=== PATIENT | female | born 2000 | race Two or more races ===

== ENCOUNTER 2025-03-30 03:22 | Emergency (ER) | payer SELFPAY ==
[2025-03-30 03:32] VITALS: BP 116/78; PULSE 72; RESP 19; TEMP 36.8; O2SAT 98
--- NOTE | 2025-03-30 03:43 | XR_ITS ---
Examination: Foot, right, 3 views Technique: AP, oblique, lateral views foot, 3 views Date and time of exam: March 30, 2025 0347 hours INDICATIONS: Patient fell today with injury to the foot, fifth digit pain. FINDINGS: Soft tissue swelling at the fifth metatarsophalangeal joint Faint radiolucency through the proximal aspect proximal phalanx fifth digit IMPRESSION: Recommend follow-up coned views fifth digit to exclude nondisplaced fracture proximal phalanx
--- NOTE | 2025-03-30 03:43 | PD.EDANKLE ---
Lower Extremity Injury RME/HPI General Chief Complaint: Ankle/Foot Injury Stated Complaint: TRIP AND FALL 5TH DIDGIT PAIN R FOOT Time Seen by Provider: 03/30/25 03:43 Arrival date/time: 03/30/25 03:22 24F with no significant PMH presents to ED with R foot pain after twist/fall 2 days ago. Limitations: no limitations Related Data Previous Rx's ?Medication ?Instructions ?Recorded ibuprofen 600 mg tablet 600 mg PO Q8H PRN pain #30 tabs 02/14/22 pantoprazole 40 mg tablet,delayed 40 mg PO QDAY #30 tabs 06/06/22 release (Protonix) ibuprofen 400 mg tablet 400 mg PO Q8H PRN fever or pain 04/02/23 #30 tabs Allergies Allergy/AdvReac Type Severity Reaction Status Date / Time No Known Allergies Allergy Verified 03/30/25 03:27 Review of Systems Review of Systems Systems Reviewed: All systems reviewed, normal except as documented Constitutional Constitutional: Reports system reviewed and no additional complaints, except as documented, Denies fever(s) and Denies headache(s) ENT Ears, Nose, Mouth, and Throat: Denies disequilibrium and Denies headache(s) Cardiovascular Cardiovascular: Reports system reviewed and no additional complaints, except as documented, Denies chest pain and Denies dyspnea Respiratory Respiratory: Reports system reviewed and no additional complaints, except as documented, Denies cough and Denies dyspnea Gastrointestinal Gastrointestinal: Reports system reviewed and no additional complaints, except as documented, Denies abdominal pain, Denies nausea and Denies vomiting Musculoskeletal Musculoskeletal: Reports as per HPI and Reports arthralgias Neurologic Neurologic: Reports system reviewed and no additional complaints, except as documented, Denies confusion, Denies disequilibrium and Denies headache(s) Psychiatric Psychiatric: Denies confusion Past Medical History Past Medical History NEUROLOGIC: Negative Neurological Disorders or Seizures CARDIAC: Positive Heart Murmur; Negative Cardiac Disorders, Congestive Heart Failure or Hypertension RESPIRATORY: Negative Chronic Obstructive Pulmonary Disease (COPD), Asthma or Sleep Apnea GASTROINTESTINAL: Positive Gastrointestinal Disorders, Gall Bladder Disease and Gastroesophageal Reflux Disease; Negative Hepatitis GENITOURINARY: Negative Genitourinary Disorders or Renal Disease REPRODUCTIVE: Negative Previous Pregnancies MUSCULOSKELETAL: Negative Musculoskeletal Disorders ENT: Negative Glaucoma ENDOCRINE: Negative Endocrine Disorders, Diabetes Mellitus Type 1 or Diabetes Mellitus Type 2 HEMATOLOGIC: Negative Blood Disorders or Sickle Cell Disease OTHER HISTORY: Negative Hospitalization, Autoimmune Disease, Down Syndrome, Developmental Delay, Shingles, Falls, Blood Transfusions, Blood Transfusion Reaction, Anesthesia Reactions, Chemotherapy, Radiation Therapy, MRSA, Vancomycin-Resistant Enterococci, Chicken Pox, Measles, Mumps or Cancer Family History FAMILY HISTORY: Positive Family Cardiac Disorders, Family Surgery and Family Anesthesia Reaction; Negative Family Psychiatric Problems, Family Respiratory Disorders, Family Gastrointestinal Problems or Family Cancer Surgical History SURGICAL: Positive Bowel Surgery; Negative Cardiac Surgery, Endocrine Surgery or Ear Surgery Social History SMOKING STATUS: Never smoker SUBSTANCE USE: marijuana ED Exam General Limitations: Present no limitations General appearance: Present alert and in no apparent distress Head Head exam: Present atraumatic Eye Eye exam: Present normal appearance, PERRL and EOMI ENT ENT exam: Present normal exam, normal oropharynx and mucous membranes moist Neck Neck exam: Present normal inspection, full ROM and trachea midline Chest Chest inspection: Present normal inspection and symmetric chest wall rise Respiratory Respiratory exam: Present normal lung sounds bilaterally Cardiovascular Cardiovascular exam: Present regular rate, normal rhythm and normal heart sounds Abdominal Exam Abdominal exam: Present soft and normal bowel sounds Extremities Exam Extremities exam: Present full ROM Expanded Lower Extremity Exam Foot/toe exam: Present full ROM (R lateral foot), tenderness, swelling and ecchymosis Back Exam Back exam: Present normal inspection and full ROM Neurological Exam Neurological exam: Present alert, oriented X3 and CN II-XII intact Psychiatric Psychiatric exam: Present normal affect and normal mood Skin Skin exam: Present warm, dry, intact and normal color Course Quality Measures none Orders Category Date Time Status XR foot comp RT min 3V Stat Exams 03/30/25 03:43 Taken Vital Signs Vital signs: Vital Signs Temperature 98.3 F 03/30/25 03:32 Pulse Rate 72 03/30/25 03:32 Respiratory Rate 19 03/30/25 03:32 Blood Pressure 116/78 03/30/25 03:32 Pulse Oximetry (%) 98 03/30/25 03:32 Oxygen Delivery Method Room Air 03/30/25 03:32 O2 at 98% on RA and WNLs Extremity Injury, Lower MDM Narrative MDM Narrative:: 24F with no significant PMH presents to ED with R foot pain after twist/fall 2 days ago. Physical exam reveals R lateral foot tenderness and bruising. ROM and gait intact. Patient is afebrile, calm, and alert. Wet XR read reveals R 5th proximal toe fx pending official report. Given luis alberto tape and pre parole counseling aide. Patient data External records reviewed:: [facility] previous records Clinical information provided by:: patient Social determinants that could affect healthcare access:: none Patient has the following chronic illnesses:: none How is presenting disease/condition affected by chronic disease/condition?: no chronic disease Evaluation data The following diagnostics were reviewed and interpreted by me:: radiology exam(s) Lab and/or radiology exams considered but not ordered:: ordered Interpretation Summary: above Medications / Prescriptions Medications or Prescriptions considered but not ordered:: not ordered Medication administrations:: n/a Consultations Consultation(s) initiated? (list below): No Diagnosis Extremity Injury, Lower Differential Diagnosis: ankle sprain and strain, acute internal derangement of knee, puncture wound of foot, fracture of toe and ankle fracture Most likely diagnosis given after review of the tests above:: Toe fx Admission Indicated Admission indicated?: not indicated Admission Request Was there a request for admission?: No Disposition Plan Disposition Plan: Discharge Discharge Attestation Discharge Attestation: The patient and all family members were given an opportunity to ask questions and understood the discharge instructions. Discharge instructions specifically effects, indications for sooner follow up or return to the emergency department, and the expected course of current diagnosis. Patient condition: Stable Discharge Plan Plan Patient Disposition: HOME (Self Care) Discharge Disposition comment: Stable Prescriptions/Referrals Prescriptions/Med Rec: No Action pantoprazole [Protonix] 40 mg tablet,delayed release (DR/EC) 40 mg PO QDAY Qty: 30 0RF ibuprofen 600 mg tablet 600 mg PO Q8H PRN (Reason: pain) Qty: 30 0RF ibuprofen 400 mg tablet 400 mg PO Q8H PRN (Reason: fever or pain) Qty: 30 0RF Problem List Clinical Impression: Fracture of toe Patient/Caregiver Discharge Instructions Education Materials: ED Fracture, Toe, Closed Additional Instructions: Please follow-up with PCP within 24-48 hours and return immediately if symptoms worsen. If problem persists, recommend outpatient PT and/or MRI follow-up. In the meantime, rest, use ice/heat, and/or compression. Print Language: Bulgarian Stand Alone Forms: Work/School Release, Patient Portal Info Letter PA/HELM[employer] Supervising Physician PA/WALDO Supervising Physician: Dr. Pierre
== END 2025-03-30 04:30 | disposition home or self-care (01) ==
LOC: SERX 05:05
PROVIDERS: Emergency Provider Emergency Medicine; PCP Internal Medicine
DX: S92.414A Nondisplaced fracture of proximal phalanx of right great toe, initial encounter for closed fracture (principal); W01.0XXA Fall on same level from slipping, tripping and stumbling without subsequent striking against object, initial encounter
CPT/HCPCS: 73630; 99283

== ENCOUNTER 2025-04-02 02:01 | Emergency (ER) | payer MEDICAID, SELFPAY ==
[2025-04-02 02:03] VITALS: BMI 24.2
[2025-04-02 02:15] VITALS: BP 128/87; PULSE 89; RESP 20; TEMP 36.8; O2SAT 97
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
== END 2025-04-02 02:42 ==
LOC: SERX 02:50
PROVIDERS: Emergency Provider Emergency Medicine
DX: Z02.89 Encounter for other administrative examinations (principal); Z04.1 Encounter for examination and observation following transport accident
CPT/HCPCS: 99281